=== PATIENT | female | born 1960 | race Caucasian/White ===

== ENCOUNTER → 2025-07-28 | Outpatient (CLI) | payer BC, SELFPAY ==
--- NOTE | 2025-07-28 13:54 | CT_ITS ---
PROCEDURE: EXTREMITY UPPER WITHOUT CONTRA 07/28/2025 REASON FOR EXAM: ME OP / OA TECHNIQUE: Procedure Code: CTEUWO Modality: CT Procedure: BLUEPRINT right shoulder area noncontrasted CT, with sagittal and coronal reconstructed images. Coronal and Sagittal reconstruction series were provided. One or more dose reduction techniques were used (e.g., Automated exposure control, adjustment of the mA and/or kV according to patient size, use of iterative reconstruction technique. RADIATION DOSE SUMMARY: CTDlvol: 22.84 mGy DLP: 656.22 mGycm COMPARISON: None provided. FINDINGS: Mild right acromioclavicular joint degenerative changes are seen. The right glenohumeral joint demonstrates at least moderate degenerative changes, with significant inferior joint narrowing clearly appreciated. Humeral head osteophytosis is particularly noted. [id number] degenerative changes of the visualized portions of the cervical spine and at least mild degenerative changes of the visualized thoracic spine also seen. No acute osseous change is evident. CT/Extremity Upper without Contra IMPRESSION: Degenerative changes, greatest of the right glenohumeral articulation. Reading Location: [id number]
[2025-07-28 15:27] LABS: Hematocrit 37.2 % (37-47); Hemoglobin 12.3 g/dL (12.0-15.0); Immature Granulocytes Count 0.040 X10^3/uL (0.0-0.0); Mean Corp Hgb Conc 33.1 g/dL (32-36); Mean Corpuscular Volume 92.1 fL (81-99); Mean Platelet Vol. 9.0 fl (6.2-12.0); NRBC Flagged by Analyzer 0 % (0-5); Platelet Count 240 K/mm3 (150-450); RBC Distribution Width CV 12.0 % (11.6-14.6); RBC Distribution Width SD 40.5 fl (35.1-43.9); Red Blood Count 4.04 M/mm3 (4.2-5.4); White Blood Count 7.0 K/mm3 (4.4-11.0)
[2025-07-28 16:11] LABS: Albumin, Serum 4.5 g/dL (3.4-4.8); Anion Gap 11 (5-15); BUN 15 mg/dL (4-19); BUN/Creat Ratio 23.7 RATIO (10-20); Calcium,Total 9.2 mg/dL (7.6-11.0); Carbon Dioxide 25.3 mmol/L (21.0-32.0); Chloride 105 mmol/L (98-108); Glucose 98 mg/dL (70-99); Magnesium 2.4 mg/dL (1.5-2.2); Potassium 4.2 mmol/L (3.3-5.1)
== END | disposition home or self-care (01) ==
PROVIDERS: Referring Provider Student in an Organized Health Care Education/Training Program; Visit Provider Student in an Organized Health Care Education/Training Program
DX: Z01.818 Encounter for other preprocedural examination (principal); Z01.810 Encounter for preprocedural cardiovascular examination; M19.011 Primary osteoarthritis, right shoulder
CPT/HCPCS: 36415; 73200; 80048; 82040; 83735; 85025; 87081